=== PATIENT | male | born 1945 | race Two or more races ===

== ENCOUNTER 2018-06-05 12:04 | Inpatient (IN) | payer OTHER ==
[~2018-06-05] VITALS: Ht 172.7 cm; Wt 77.1 kg
[2018-06-05] MEDS ORDERED: ONDANSETRON HCL 4 MG/2 ML VIAL IV ONE (12:15)
[2018-06-05] MEDS ORDERED: NITROGLYCERIN 0.4 MG SL TAB SL ONE (12:15)
[2018-06-05] MEDS ORDERED: ASPirin 81 mg TAB PO ONE (12:15)
[2018-06-05] MEDS ORDERED: MORPHINE SULFATE 4 MG/ML SYR/VIAL IV ONE (12:15)
[2018-06-05 12:41] LABS: Basophils # (auto) 0.1 uL; Eosinophils # (auto) 0.2 uL; Hematocrit 33.1 % (41.0-53.0); Hemoglobin 11.4 g/dL (13.5-17.5); Lymphocytes # (auto) 1.6 uL; Lymphocytes % (auto) 31.2 % (10.0-50.0); Mean Corpuscular Hemoglobin 31.7 pg (28.0-32.0); Mean Corpuscular Hgb Conc. 34.3 g/dL (32.0-36.0); Mean Corpuscular Volume 92.4 fL (80.0-100.0); Monocytes # (auto) 0.3 uL; Monocytes % (auto) 6.6 % (0.0-12.0); Neutrophils # (auto) 2.9 uL; Neutrophils % (auto) 58.2 % (37.0-80.0); Platelet Count (auto) 169 10^3/uL (140-450); Red Blood Cells 3.58 10^6/uL (4.5-5.90); Red Cell Distribution Width 15.2 % (11.8-14.3)
[2018-06-05 12:56] LABS: Albumin 2.7 g/dL (3.4-5.0); BUN/Creatinine Ratio 12.4; Calcium 8.6 mg/dL (8.5-10.1); Potassium 3.6 mmol/L (3.5-5.1)
[2018-06-05 12:59] LABS: INR 0.9 (0.9-1.15); Partial Thromboplastin Time 26.6 sec (23.78-33.04); Prothrombin Time 9.7 sec (9.27-12.13)
[2018-06-05 13:01] LABS: Bilirubin, Total 0.4 mg/dL (0.2-1.0); Total Protein 7.1 g/dL (6.4-8.2)
[2018-06-05] MEDS ORDERED: HEPARIN SODIUM (PORCINE) 5000 UNITS/ML 1ML VIAL IV ONE (13:15)
[2018-06-05] MEDS: SODIUM CHLORIDE 0.9% 1,000 ML IV SCH (13:29)
[2018-06-05] MEDS ORDERED: NITROGLYCERIN 0.4 MG SL TAB SL PRN (13:30)
[2018-06-05] MEDS ORDERED: MORPHINE SULFATE 4 MG/ML SYR/VIAL IV PRN ×2 (13:30)
[2018-06-05] MEDS ORDERED: DEXTROSE (50%) 50ML SYRG IV PRN (13:30)
[2018-06-05] MEDS ORDERED: ACETAMINOPHEN 500 MG TAB PO PRN (13:30)
[2018-06-05] MEDS ORDERED: TEMAZEPAM 15 MG CAP PO PRN (13:30)
[2018-06-05] MEDS ORDERED: ONDANSETRON HCL 4 MG/2 ML VIAL IV PRN (13:30)
[2018-06-05] MEDS ORDERED: HYDROcodone-ACET 5/325MG TAB PO PRN (13:30)
[2018-06-05] MEDS ORDERED: SODIUM BICARBONATE 50ML VIAL 50 ML in D5W 5% 1,000 ML IV ONE (13:45)
[2018-06-05] MEDS ORDERED: ACETYLCYSTEINE ORAL for CIN 20%(200MG/ML) 4ML PO ONE (13:45)
[2018-06-05] MEDS ORDERED: SODIUM BICARBONATE 8.4% INJ 50ML SYRINGE ONE (13:50)
[2018-06-05] MEDS ORDERED: LIDOCAINE 2%HCL (LOCAL ANESTH.) INJ 10ml MDV ONE (13:50)
[2018-06-05] MEDS ORDERED: SODIUM CHL 0.9% 50 ML ONE (13:50)
[2018-06-05] MEDS ORDERED: MIDAZOLAM HCL 1MG/1ML-2 ML VIAL ONE (13:50)
[2018-06-05] MEDS ORDERED: ANGIOMAX 250 MG VIAL IV ONE (13:50)
[2018-06-05] MEDS ORDERED: fentaNYL CITRATE 100 MCG/2 ML VL ONE (13:50)
[2018-06-05] MEDS ORDERED: IODIXANOL 320MG/ML 100ML BTL IV ONE (13:51)
[2018-06-05 14:11] LABS: Urine Bacteria NONE SEEN /hpf (None Seen); Urine Blood TRACE /uL (Negative); Urine Specific Gravity 1.008 (1.001-1.035); Urine WBC 1 /hpf (0 - 3)
[2018-06-05 14:37] LABS: Alcohol, Urine < 3.0 mg/dL (0-5); Amphetamine Screen, Urine NEGATIVE (NEGATIVE); Barbiturate Scree,Urine NEGATIVE (NEGATIVE); Benzodiazephine Screen, Urine NEGATIVE (NEGATIVE); Cannabinoid Screen, Urine NEGATIVE (NEGATIVE); Cocaine Screen, Urine NEGATIVE (NEGATIVE); Phencyclidine Screen, Urine NEGATIVE (NEGATIVE)
[2018-06-05 14:47] LABS: Opiate Scree,Urine NEGATIVE (NEGATIVE)
[2018-06-05] MEDS ORDERED: HEPARIN SODIUM (PORCINE) 5000 UNITS/ML 1ML VIAL ONE (14:55)
[2018-06-05] MEDS ORDERED: PRASUGREL HCL 10 MG TAB ONE (15:21)
[2018-06-05 15:50] VITALS: BP 149/67
[2018-06-05] MEDS: InsuLIN REG 1unit/0.01ml Soln (100units/ml) SC SCH ×2 (17:00→21:37)
[2018-06-05 17:06] VITALS: BP 149/67
[2018-06-05] MEDS: ACCU-CHEK COMFORT CURVE STRIP VI SCH ×2 (18:05→21:31)
[2018-06-05 20:00] VITALS: BP 159/66
[2018-06-05] MEDS: SODIUM CHLOR 0.9% PF (SALINE LOCK) 10ML VIAL/SYR IV SCH (21:30)
[2018-06-05] MEDS: METOPROLOL TARTRATE 25 MG TAB PO SCH (21:30)
[2018-06-05] MEDS: ATORVASTATIN 20 MG TAB PO SCH (21:30)
[2018-06-05] MEDS ORDERED: ENOXAPARIN SOD 80 MG/0.8ML SYRINGE SC SCH (22:00)
[2018-06-06] VITALS: BP 156/80
[2018-06-06] MEDS: LORazepam 0.5 MG TAB PO PRN ×2 (02:01→22:02)
[2018-06-06] MEDS: SODIUM CHLORIDE 0.9% 1,000 ML IV SCH ×2 (02:52→16:15)
[2018-06-06 04:00] VITALS: BP 151/66
[2018-06-06] MEDS: SODIUM CHLOR 0.9% PF (SALINE LOCK) 10ML VIAL/SYR IV SCH ×3 (06:32→22:00)
[2018-06-06] MEDS: ACCU-CHEK COMFORT CURVE STRIP VI SCH ×4 (06:32→22:00)
[2018-06-06] MEDS: InsuLIN REG 1unit/0.01ml Soln (100units/ml) SC SCH ×4 (06:44→22:30)
[2018-06-06 08:00] VITALS: BP 153/69
[2018-06-06 09:41] LABS: Basophils # (auto) 0.1 uL; Basophils % (auto) 1.3 % (0.0-2.0); Eosinophils # (auto) 0.2 uL; Eosinophils % (auto) 4.9 % (0.0-7.0); Hematocrit 32.5 % (41.0-53.0); Hemoglobin 10.8 g/dL (13.5-17.5); Lymphocytes # (auto) 0.9 uL; Lymphocytes % (auto) 19.5 % (10.0-50.0); Mean Corpuscular Hemoglobin 30.7 pg (28.0-32.0); Mean Corpuscular Hgb Conc. 33.2 g/dL (32.0-36.0); Mean Corpuscular Volume 92.4 fL (80.0-100.0); Monocytes # (auto) 0.4 uL; Monocytes % (auto) 7.6 % (0.0-12.0); Neutrophils # (auto) 3.1 uL; Neutrophils % (auto) 66.7 % (37.0-80.0); Platelet Count (auto) 163 10^3/uL (140-450); Red Blood Cells 3.52 10^6/uL (4.5-5.90); Red Cell Distribution Width 15.1 % (11.8-14.3); White Blood Cell 4.6 10^3/uL (4.4-10.8)
[2018-06-06 09:47] LABS: Albumin 2.4 g/dL (3.4-5.0); Calcium 8.1 mg/dL (8.5-10.1); Potassium 3.8 mmol/L (3.5-5.1)
[2018-06-06] MEDS: NITROGLYCERIN 0.2MG/HR TOPICAL PATCH TD SCH (09:50)
[2018-06-06] MEDS: PANTOPRAZOLE 40 MG TAB PO SCH (09:50)
[2018-06-06 09:51] LABS: BUN/Creatinine Ratio 11.4
[2018-06-06] MEDS: METOPROLOL TARTRATE 25 MG TAB PO SCH ×2 (09:51→22:00)
[2018-06-06] MEDS: CLOPIDOGREL BISULFATE 75 MG TAB PO SCH (09:51)
[2018-06-06] MEDS: DABIGATRAN 75 MG CAP PO SCH ×2 (09:51→22:01)
[2018-06-06 09:52] LABS: Bilirubin, Total 0.4 mg/dL (0.2-1.0); Total Protein 6.5 g/dL (6.4-8.2)
[2018-06-06] MEDS ORDERED: ENALAPRIL MALEATE 2.5 MG TAB PO SCH (10:00)
[2018-06-06] MEDS ORDERED: ASPirin 81 mg TAB PO SCH (10:00)
[2018-06-06 11:50] VITALS: BP 144/69
[2018-06-06 16:00] VITALS: BP 158/70
[2018-06-06 19:46] VITALS: BP 176/80
[2018-06-06] MEDS: ATORVASTATIN 20 MG TAB PO SCH (22:01)
[2018-06-06] MEDS: ENALAPRIL MALEATE 2.5 MG TAB PO SCH (22:01)
[2018-06-07] VITALS: BP 163/72
[2018-06-07 04:00] VITALS: BP 158/77
[2018-06-07] MEDS: SODIUM CHLORIDE 0.9% 1,000 ML IV SCH (05:29)
[2018-06-07] MEDS: SODIUM CHLOR 0.9% PF (SALINE LOCK) 10ML VIAL/SYR IV SCH (06:47)
[2018-06-07] MEDS: InsuLIN REG 1unit/0.01ml Soln (100units/ml) SC SCH (06:48)
[2018-06-07] MEDS: ACCU-CHEK COMFORT CURVE STRIP VI SCH (06:48)
[2018-06-07 08:00] VITALS: BP 176/69
[2018-06-07] MEDS ORDERED: METOPROLOL TARTRATE 50 MG TAB PO ONE (08:00)
[2018-06-07 09:07] LABS: Basophils # (auto) 0 uL; Basophils % (auto) 1.1 % (0.0-2.0); Eosinophils # (auto) 0.2 uL; Eosinophils % (auto) 5.6 % (0.0-7.0); Hematocrit 34.8 % (41.0-53.0); Hemoglobin 11.6 g/dL (13.5-17.5); Mean Corpuscular Hemoglobin 30.9 pg (28.0-32.0); Mean Corpuscular Hgb Conc. 33.4 g/dL (32.0-36.0); Mean Corpuscular Volume 92.6 fL (80.0-100.0); Monocytes # (auto) 0.3 uL; Monocytes % (auto) 6.6 % (0.0-12.0); Neutrophils # (auto) 2.7 uL; Neutrophils % (auto) 62.7 % (37.0-80.0); Platelet Count (auto) 165 10^3/uL (140-450); Red Blood Cells 3.75 10^6/uL (4.5-5.90); Red Cell Distribution Width 14.9 % (11.8-14.3); White Blood Cell 4.3 10^3/uL (4.4-10.8)
[2018-06-07 09:27] LABS: Albumin 2.5 g/dL (3.4-5.0); BUN/Creatinine Ratio 13.5; Calcium 8.3 mg/dL (8.5-10.1)
[2018-06-07 09:28] LABS: Bilirubin, Total 0.3 mg/dL (0.2-1.0); Total Protein 6.5 g/dL (6.4-8.2)
[2018-06-07] MEDS: NITROGLYCERIN 0.2MG/HR TOPICAL PATCH TD SCH (10:00)
[2018-06-07] MEDS: DABIGATRAN 75 MG CAP PO SCH (10:13)
[2018-06-07] MEDS: CLOPIDOGREL BISULFATE 75 MG TAB PO SCH (10:13)
[2018-06-07] MEDS: ENALAPRIL MALEATE 2.5 MG TAB PO SCH (10:14)
[2018-06-07] MEDS: PANTOPRAZOLE 40 MG TAB PO SCH (10:15)
[2018-06-07 11:00] VITALS: BP 161/75
[2018-06-07 12:10] VITALS: BP 139/64
[2018-06-07 12:11] VITALS: BP 139/64
== END 2018-06-07 12:30 | disposition home or self-care (01) | DRG 250 ==
LOC: ER 12:04 → EDUNIT# 12:04 → TELE 12:05 → ICU CENTRL 15:58 → DOU IN ICU 16:31
PROVIDERS: ADMIT Internal Medicine; ATTEND Family Medicine
PROC: 02703ZZ Dilation of Coronary Artery, One Artery, Percutaneous Approach (ICD-10-PCS; principal; 2018-06-05)
PROC: B2111ZZ Fluoroscopy of Multiple Coronary Arteries using Low Osmolar Contrast (ICD-10-PCS; 2018-06-05)
PROC: 4A023N7 Measurement of Cardiac Sampling and Pressure, Left Heart, Percutaneous Approach (ICD-10-PCS; 2018-06-05)
PROC: B240ZZ3 Ultrasonography of Single Coronary Artery, Intravascular (ICD-10-PCS; 2018-06-05)
DX: I21.4 Non-ST elevation (NSTEMI) myocardial infarction (principal); E43 Unspecified severe protein-calorie malnutrition; I50.33 Acute on chronic diastolic (congestive) heart failure; I13.0 Hypertensive heart and chronic kidney disease with heart failure and stage 1 through stage 4 chronic kidney disease, or unspecified chronic kidney disease; E78.00 Pure hypercholesterolemia, unspecified; E11.65 Type 2 diabetes mellitus with hyperglycemia; Z85.01 Personal history of malignant neoplasm of esophagus; Z92.3 Personal history of irradiation; Z92.21 Personal history of antineoplastic chemotherapy; N18.9 Chronic kidney disease, unspecified; I25.2 Old myocardial infarction; Z95.5 Presence of coronary angioplasty implant and graft; I45.10 Unspecified right bundle-branch block; I25.10 Atherosclerotic heart disease of native coronary artery without angina pectoris; E78.5 Hyperlipidemia, unspecified; E11.22 Type 2 diabetes mellitus with diabetic chronic kidney disease; Z68.25 Body mass index [BMI] 25.0-25.9, adult; Z88.6 Allergy status to analgesic agent; Z88.2 Allergy status to sulfonamides; Z79.899 Other long term (current) drug therapy
CPT/HCPCS: 36415; 71045; 80053; 80061; 80307; 81001; 82550; 82962; 83036; 83880; 84484; 85025; 85610; 85652; 85730; 86141; 87081; 92920; 92921; 92978; 93005; 93306; 93458; 99152; A6257; C1887; J1815; J2001; J2250; J2405; Q9967

== ENCOUNTER 2020-06-23 02:18 | Inpatient (IN) | payer OTHER ==
[~2020-06-23] VITALS: Ht 177.8 cm; Wt 80.6 kg
[2020-06-23 03:15] LABS: Basophils # (auto) 0.1 10 ^3/uL (0-0.2); Basophils % (auto) 1.2 % (0.0-2.0); Eosinophils # (auto) 0.2 10 ^3/uL (0-0.8); Eosinophils % (auto) 2.9 % (0.0-7.0); Hematocrit 26.2 % (41.0-53.0); Hemoglobin 8.7 g/dL (13.5-17.5); Lymphocytes # (auto) 1.2 10 ^3/uL (0.4-5.4); Lymphocytes % (auto) 18.4 % (10.0-50.0); Mean Corpuscular Hemoglobin 28.7 pg (28.0-32.0); Mean Corpuscular Hgb Conc. 33.1 g/dL (32.0-36.0); Mean Corpuscular Volume 86.8 fL (80.0-100.0); Monocytes # (auto) 0.5 10 ^3/uL (0-1.3); Monocytes % (auto) 7.3 % (0.0-12.0); Neutrophils # (auto) 4.6 10 ^3/uL (1.6-8.6); Neutrophils % (auto) 70.2 % (37.0-80.0); Nucleated Red Blood Cells % 0.1 %; Platelet Count (auto) 262 10^3/uL (140-450); Red Blood Cells 3.02 10^6/uL (4.5-5.90); Red Cell Distribution Width 15.7 % (11.8-14.3); White Blood Cell 6.6 10^3/uL (4.4-10.8)
[2020-06-23 03:30] LABS: INR 2.76 (0.9-1.15); Partial Thromboplastin Time 38.1 sec (23.0-31.2)
[2020-06-23 03:34] LABS: Albumin 2.8 g/dL (3.4-5.0); BUN/Creatinine Ratio 13.8; Calcium 8.1 mg/dL (8.5-10.1); Potassium 4.6 mmol/L (3.5-5.1)
[2020-06-23 03:40] LABS: Bilirubin, Total 0.2 mg/dL (0.2-1.0); Total Protein 6.6 g/dL (6.4-8.2)
[2020-06-23] MEDS ORDERED: ONDANSETRON HCL 4 MG/2 ML VIAL IV ONE (03:45)
[2020-06-23] MEDS ORDERED: MORPHINE SULFATE 4 MG/ML SYR/VIAL IV ONE (03:45)
[2020-06-23] MEDS ORDERED: FUROSEMIDE 20 MG/2 ML VIAL IV ONE (04:15)
[2020-06-23] MEDS ORDERED: DEXTROSE (50%) 50ML SYRG IV PRN (07:00)
[2020-06-23] MEDS: ACCU-CHEK COMFORT CURVE STRIP VI SCH ×4 (08:30→21:40)
[2020-06-23] MEDS: InsuLIN REG 1unit/0.01ml Soln (100units/ml) SC SCH ×4 (09:02→21:47)
[2020-06-23] MEDS: ASPirin 81 mg TAB PO SCH (09:13)
[2020-06-23] MEDS: CLOPIDOGREL BISULFATE 75 MG TAB PO SCH (09:15)
[2020-06-23] MEDS: hydrALAZINE HCL 25 MG TAB PO SCH ×2 (09:15→21:39)
[2020-06-23] MEDS: ISOSORBIDE MONONITRATE ER 60 MG TAB PO SCH (09:15)
[2020-06-23] MEDS: METOPROLOL TARTRATE 25 MG TAB PO SCH ×2 (09:16→21:39)
[2020-06-23] MEDS: PANTOPRAZOLE 40 MG TAB PO SCH (09:16)
[2020-06-23] MEDS ORDERED: AMLO5TAB15 PO (09:56)
[2020-06-23] MEDS ORDERED: SENN1TAB14 PO (09:56)
[2020-06-23] MEDS ORDERED: HYDR50TA15 PO (09:56)
[2020-06-23] MEDS ORDERED: LISI-646 PO (09:56)
[2020-06-23] MEDS ORDERED: METO25TA5 PO (09:56)
[2020-06-23] MEDS ORDERED: ZOLP5TAB5 PO (09:56)
[2020-06-23] MEDS ORDERED: TRAZ-184 PO (09:56)
[2020-06-23] MEDS ORDERED: ISOS60TA24 PO (09:56)
[2020-06-23] MEDS ORDERED: WARF5TAB71 PO (09:56)
[2020-06-23] MEDS ORDERED: CLOP75TA41 PO (09:56)
[2020-06-23] MEDS ORDERED: LISINOPRIL 10 MG TAB PO SCH (10:00)
[2020-06-23] MEDS: ONDANSETRON HCL 4 MG/2 ML VIAL IV PRN ×2 (10:15→15:24)
[2020-06-23] MEDS ORDERED: ATOR40TA52 PO (10:46)
[2020-06-23] MEDS: ENOXAPARIN SOD 30 MG/0.3 ML SYRINGE SC SCH (11:45)
[2020-06-23] MEDS ORDERED: OPTISON 3ml Vial for INJ IV ONE ×2 (11:53→12:15)
[2020-06-23 13:04] VITALS: BP 140/60
--- NOTE | 2020-06-23 13:15 | NUR ---
Telemetry admit from ER MARIA LUZ OSWALD admitted to Telemetry unit after SBAR received. Patient oriented to Nevin Quevedo, primary RN, unit, room, bed, and unit policies regarding patient care and visiting hours.Patient now on continuous telemetry monitoring, tele box #23 and telemetry reading on arrival to unit is sinus rhythm @ 81 bpm. IV to left hand, 20 gauge, patent and saline locked. Patient placed on bedside oxygen, weighed by bedscale and encouraged to call if they need something. All questions and concerns addressed, patient verbalized understanding.
--- NOTE | 2020-06-23 13:20 | NUR ---
ROUNDS Dr Fan Mathur at bedside for rounds, new orders received and followed through. Patient updated on plan of care, verbalized understanding.
[2020-06-23 16:33] VITALS: BP 129/90
[2020-06-23] MEDS ORDERED: LORA1TAB23 PO (16:50)
[2020-06-23] MEDS: LORazepam 0.5 MG TAB PO PRN (17:56)
[2020-06-23] MEDS: SODIUM CHLORIDE 0.9% 1,000 ML IV SCH (17:56)
--- NOTE | 2020-06-23 19:09 | NUR ---
Care endorsed to JAMEE Pete, night nurse.
[2020-06-23 21:20] LABS: Urine Bacteria FEW /hpf (None Seen); Urine Blood TRACE /uL (Negative); Urine Hyaline Cast FEW /lpf (0 - 2); Urine Specific Gravity 1.016 (1.001-1.035); Urine WBC 2 /hpf (0 - 3)
[2020-06-23] MEDS: SODIUM BICARBONATE 650 MG TAB PO SCH (21:39)
[2020-06-23] MEDS: ATORVASTATIN 20 MG TAB PO SCH (21:39)
[2020-06-23 21:43] LABS: Protein, Urine 998.6 mg/dL (0.0-11.9)
[2020-06-23 22:00] VITALS: BP 164/70
--- NOTE | 2020-06-24 04:49 | NUR ---
HOSPITALIST PAGED PATIENT HAD 22 BEAT RUN OF VTACH. BP IS 183/63 HR 64. PATIENT DENIES CHEST PAIN, ASYMPTOMATIC.
[2020-06-24 05:00] VITALS: BP 184/83
--- NOTE | 2020-06-24 05:00 | NUR ---
HOSPITALIST RETURNS CALL SPOKE TO DANIELLA RELATIONSHIP BANKER NOTIFIED HIM OF PATIENT'S 22 BEAT RUN OF VTACH.CURRENT VITALS: BP 183/63 HR 64. PATIENT DENIES CHEST PAIN, ASYMPTOMATIC. NEW ORDERS RECEIVED, READ BACK AND VERIFIED.
[2020-06-24] MEDS: hydrALAZINE HCL 20 MG/ML VL IV PRN ×2 (05:20→16:19)
[2020-06-24] MEDS: SODIUM BICARBONATE 650 MG TAB PO SCH ×3 (05:20→21:11)
[2020-06-24 06:19] LABS: Basophils # (auto) 0.1 10 ^3/uL (0-0.2); Basophils % (auto) 1.4 % (0.0-2.0); Eosinophils # (auto) 0.2 10 ^3/uL (0-0.8); Eosinophils % (auto) 4.3 % (0.0-7.0); Hematocrit 25.8 % (41.0-53.0); Hemoglobin 8.5 g/dL (13.5-17.5); Lymphocytes # (auto) 1.1 10 ^3/uL (0.4-5.4); Lymphocytes % (auto) 21.2 % (10.0-50.0); Mean Corpuscular Hgb Conc. 33.1 g/dL (32.0-36.0); Mean Corpuscular Volume 87.6 fL (80.0-100.0); Monocytes # (auto) 0.4 10 ^3/uL (0-1.3); Monocytes % (auto) 7.8 % (0.0-12.0); Neutrophils # (auto) 3.3 10 ^3/uL (1.6-8.6); Neutrophils % (auto) 65.3 % (37.0-80.0); Platelet Count (auto) 244 10^3/uL (140-450); Red Blood Cells 2.94 10^6/uL (4.5-5.90); Red Cell Distribution Width 15.6 % (11.8-14.3)
[2020-06-24] MEDS: InsuLIN REG 1unit/0.01ml Soln (100units/ml) SC SCH ×4 (06:22→21:22)
[2020-06-24] MEDS: ACCU-CHEK COMFORT CURVE STRIP VI SCH ×4 (06:22→21:12)
[2020-06-24] MEDS: hydrALAZINE HCL 25 MG TAB PO SCH ×3 (06:22→21:11)
[2020-06-24 06:39] LABS: BUN/Creatinine Ratio 14.7; Calcium 8.8 mg/dL (8.5-10.1); Potassium 5.1 mmol/L (3.5-5.1)
[2020-06-24 06:40] LABS: INR 2.56 (0.9-1.15); Partial Thromboplastin Time 36.7 sec (23.0-31.2)
--- NOTE | 2020-06-24 07:30 | NUR ---
Opening Shift Note Assuming care of patient at this time. Patient is awake and alert. Patient denies pain. Patient shows no signs or symptoms of distress or shortness of breath. Bed is locked and lowered with side rails up x2. Instructed patient on the plan of care for today and to call for assistance as needed. Call light within reach. Will continue to round hourly and as needed.
--- NOTE | 2020-06-24 08:30 | NUR ---
DARREN Roberto, at bedside Mayra Roberto NP, at bedside at this time discussing plan of care with patient. Pardeep, reeducating patient on details of procedure. Patient is aware of procedure including both risks and benefits. Patient has decided to proceed with procedure. Will have patient sign consents at this time.
--- NOTE | 2020-06-24 08:44 | NUR ---
Call to Telephone Coin Box Collector Call to wastewater analyst lab analyst. Patient has signed consents regarding upcoming procedure. Telephone Coin Box Collector to contact this RN when they are ready for patient.
[2020-06-24 09:00] VITALS: BP 154/66
[2020-06-24] MEDS: ASPirin 81 mg TAB PO SCH (09:35)
[2020-06-24] MEDS: CLOPIDOGREL BISULFATE 75 MG TAB PO SCH (09:35)
[2020-06-24] MEDS: METOPROLOL TARTRATE 25 MG TAB PO SCH ×2 (09:36→21:11)
[2020-06-24] MEDS: ISOSORBIDE MONONITRATE ER 60 MG TAB PO SCH (09:37)
[2020-06-24] MEDS: PANTOPRAZOLE 40 MG TAB PO SCH (09:38)
[2020-06-24] MEDS: ENOXAPARIN SOD 30 MG/0.3 ML SYRINGE SC SCH (09:38)
--- NOTE | 2020-06-24 09:45 | NUR ---
at bedside Dr. Mathur at bedside discussing plan of care with patient and this RN. All questions and concerns addressed with patient.
[2020-06-24] MEDS ORDERED: ENOXAPARIN SOD 100 MG/1 ML SYRINGE SC SCH (10:00)
[2020-06-24] MEDS ORDERED: IODIXANOL 320MG/ML 100ML BTL IV ONE ×2 (12:50→14:14)
[2020-06-24] MEDS ORDERED: LIDOCAINE 2%HCL (LOCAL ANESTH.) INJ 20ML MDV ONE (12:50)
[2020-06-24] MEDS ORDERED: VERAPAMIL 2.5MG/ML INJ 2ML VIAL IV ONE (13:15)
[2020-06-24] MEDS ORDERED: diphenhdrAMINE HCL 50 MG/1 ML VL ONE (13:15)
[2020-06-24] MEDS ORDERED: ANGIOMAX 250 MG VIAL IV ONE (13:15)
[2020-06-24] MEDS ORDERED: methylPREDNISolone SOD SUCC 125 MG/2 ML VL ONE (13:15)
[2020-06-24] MEDS ORDERED: HEPARIN SODIUM (PORCINE) 5000 UNITS/ML 1ML VIAL ONE (13:15)
[2020-06-24] MEDS ORDERED: fentaNYL CITRATE 100 MCG/2 ML VL ONE (13:16)
[2020-06-24] MEDS ORDERED: FAMOTIDINE (10MG/ML) 2ML VL IV ONE (13:16)
[2020-06-24] MEDS ORDERED: MIDAZOLAM HCL 1MG/1ML-2 ML VIAL ONE ×2 (13:16→13:51)
[2020-06-24] MEDS ORDERED: SODIUM CHL 0.9% 50 ML ONE (13:16)
[2020-06-24] MEDS ORDERED: hydrALAZINE HCL 20 MG/ML VL ONE (14:11)
[2020-06-24] MEDS ORDERED: ASPirin 81 mg TAB ONE (14:16)
--- NOTE | 2020-06-24 16:18 | NUR ---
Call to Daughter Return call to daughter at this time. Daughter made aware that woodworking shop laborer has called report in to this RN and that patient will be returning to the floor soon.
[2020-06-24 16:35] VITALS: BP 146/67
[2020-06-24] MEDS: SODIUM CHLORIDE 0.9% 1,000 ML IV SCH (19:30)
[2020-06-24] MEDS ORDERED: SODIUM CHLORIDE 0.9% 1,000 ML IV ONE (20:00)
--- NOTE | 2020-06-24 20:00 | NUR ---
Opening Shift Note Assumed care of patient, awake and alert. No S/S of distress/SOB or pain. Instructed on POC and to call for assist PRN, will continue to monitor for changes Q1hr and PRN.Dressing in the right groin dry and intact, with old blood stained.
[2020-06-24] MEDS: ATORVASTATIN 20 MG TAB PO SCH (21:10)
[2020-06-24] MEDS: LORazepam 0.5 MG TAB PO PRN (21:22)
[2020-06-24 21:32] VITALS: BP 156/77
[2020-06-25] MEDS: hydrALAZINE HCL 20 MG/ML VL IV PRN (04:43)
[2020-06-25] MEDS: SODIUM BICARBONATE 650 MG TAB PO SCH ×3 (05:33→21:10)
[2020-06-25] MEDS: hydrALAZINE HCL 25 MG TAB PO SCH ×3 (05:34→21:09)
[2020-06-25 05:57] VITALS: BP 166/60
[2020-06-25] MEDS: InsuLIN REG 1unit/0.01ml Soln (100units/ml) SC SCH ×4 (06:25→21:38)
[2020-06-25] MEDS: ACCU-CHEK COMFORT CURVE STRIP VI SCH ×4 (06:25→21:11)
[2020-06-25] MEDS: NITROGLYCERIN 0.4 MG SL TAB SL PRN (06:55)
--- NOTE | 2020-06-25 06:55 | NUR ---
Complained of chest pain 9/10 level, blood pressure is 160/86 manual,pulse is 65,machine is 191/84, medicated with nitroglycerine .4mg.tab.,sublingual, EKG done.
--- NOTE | 2020-06-25 07:36 | NUR ---
REPORT GIVEN TO Vamsi LEMON, PATIENT IS RESTING , CHEST PA[place] 10/05 [place] [id number].
[2020-06-25] MEDS ORDERED: cloNIDine HCL 0.1 MG TAB PO PRN (08:15)
--- NOTE | 2020-06-25 08:42 | NUR ---
Rounded on patient with who said that patient kidney function are stable for now and he would like to keep patient here one more day. That he did not want to transfer patient to [facility] since his kidney functions are better. He ordered CMP for patient and said to call with the results.I also let him know that patient was having chest pain last night he said that it is expected after a heart cath. I also let him know that patient blood pressure is high he ordered clonidine 0.2mg q6 PO PRN SBP >160.
[2020-06-25 08:56] LABS: Albumin 2.8 g/dL (3.4-5.0); Calcium 8.4 mg/dL (8.5-10.1); Potassium 5.5 mmol/L (3.5-5.1)
[2020-06-25 08:58] LABS: BUN/Creatinine Ratio 17.1; Bilirubin, Total 0.2 mg/dL (0.2-1.0); Total Protein 6.5 g/dL (6.4-8.2)
[2020-06-25 09:00] VITALS: BP 170/66
[2020-06-25] MEDS ORDERED: InsuLIN REG 1unit/0.01ml Soln (100units/ml) IV ONE (09:15)
[2020-06-25] MEDS ORDERED: CALCIUM GLUC 4.65meq/50ml D5AE 50 ML IV ONE (09:15)
[2020-06-25] MEDS ORDERED: SODIUM ZIRCONIUM CYCL 10 GM PAK PO ONE (09:15)
[2020-06-25] MEDS ORDERED: SODIUM BICARBONATE 8.4% INJ 50ML SYRINGE IV ONE (09:15)
[2020-06-25] MEDS ORDERED: FUROSEMIDE 20 MG/2 ML VIAL IV ONE ×2 (09:15→13:30)
[2020-06-25] MEDS ORDERED: DEXTROSE (50%) 50ML SYRG IV ONE (09:15)
[2020-06-25] MEDS: MORPHINE SULF INJ 2 MG/ML SYRINGE 1ML IV PRN (09:41)
[2020-06-25] MEDS: ASPirin 81 mg TAB PO SCH (10:02)
[2020-06-25] MEDS: CLOPIDOGREL BISULFATE 75 MG TAB PO SCH (10:02)
[2020-06-25] MEDS: METOPROLOL TARTRATE 25 MG TAB PO SCH ×2 (10:02→21:10)
[2020-06-25] MEDS: ENOXAPARIN SOD 30 MG/0.3 ML SYRINGE SC SCH (10:03)
[2020-06-25] MEDS: ISOSORBIDE MONONITRATE ER 60 MG TAB PO SCH (10:03)
[2020-06-25] MEDS: PANTOPRAZOLE 40 MG TAB PO SCH (10:30)
[2020-06-25 13:00] VITALS: BP 156/53
--- NOTE | 2020-06-25 13:28 | NUR ---
Spoke to told her the patient labs and also informed her that saw the patient and because of patient's potassium of 5.5 he ordered dextrose 50% IV once, sodium bicarbonate 8.4% IV once, lokelma 10gm PO once , lasix 20mg once , insulin 10 units once, calcium gluconate 4.65meq/50ml IV once. aware. also gave me the order for another dose of lasix 20gm IV once, and to put patient on Lokelma for 48 hours TID per protocol for Hyperkalemia.
[2020-06-25] MEDS: SODIUM ZIRCONIUM CYCL 10 GM PAK PO SCH ×2 (15:05→22:44)
[2020-06-25 16:40] VITALS: BP 153/74
[2020-06-25] MEDS: SODIUM BICARBONATE 50ML VIAL 75 ML in SOD CHL 0.45% 1,000 ML IV SCH (17:49)
--- NOTE | 2020-06-25 18:07 | NUR ---
Paged that is abalone fisherman to let him know that patient had 1 episode of chest pain but after I gave him the ordered morphine , patient was fine and never had another chest pain episode. Although I spoke to that said it is expected after a heart cath, I also wanted to let know. The patient also had 6 beats of afib during the day, it is not a new rhythm for patient as on the 06/23 patient had a ekg done which resulted in afib. did not call back yet.
--- NOTE | 2020-06-25 19:54 | NUR ---
Opening Shift Note Assumed care of patient, awake and alert. No S/S of distress/SOB or pain. Instructed on POC and to call for assist PRN, will continue to monitor for changes Q1hr and PRN.Requested Ativan tab. at bedtime.
[2020-06-25] MEDS: ATORVASTATIN 20 MG TAB PO SCH (21:10)
--- NOTE | 2020-06-25 21:30 | NUR ---
Called/paged Romain called re:stool softener . Waiting for call back. Continue care.
--- NOTE | 2020-06-25 21:35 | NUR ---
returned call Patricia returned call, updated on patient status and reason for call, orders received of colace 100mg.cap.B.I.D Continue care.
[2020-06-25] MEDS: DOCUSATE SOD 100 MG CAP PO SCH (21:37)
[2020-06-25 22:00] VITALS: BP 158/56
[2020-06-26] MEDS: LORazepam 0.5 MG TAB PO PRN ×2 (00:46→22:40)
--- NOTE | 2020-06-26 01:17 | NUR ---
returned call Coretta Campo. returned call, updated on patient status and reason for call that patient had 15 beats V-tach no complaint of chest pain. R.N. went to check patient asymptomatic, patient is sitting in the bed want to use the urinal, vital signs check with blood pressure of 182/68, pulse is 73, and .2mg.clonidine given as PRN, and 1mg. Ativan tab. to help him relax and sleep, and told N.p. that the patient had episode also of 12 beats V-Tach on the 06/23, and the left heart cath on the 06/24, no orders received. Continue care.
--- NOTE | 2020-06-26 01:17 | NUR ---
Called/paged Gregg Campo called re:patient had episode of 15 beats of V-Tach, asymptomatic . Waiting for call back. Continue care.
[2020-06-26 05:00] VITALS: BP 146/58
[2020-06-26] MEDS: hydrALAZINE HCL 25 MG TAB PO SCH ×3 (05:46→22:18)
[2020-06-26] MEDS: SODIUM BICARBONATE 650 MG TAB PO SCH ×3 (05:49→22:18)
[2020-06-26] MEDS: ACCU-CHEK COMFORT CURVE STRIP VI SCH ×4 (05:52→21:55)
[2020-06-26] MEDS: InsuLIN REG 1unit/0.01ml Soln (100units/ml) SC SCH ×4 (05:52→21:56)
[2020-06-26 06:30] LABS: Albumin 2.3 g/dL (3.4-5.0); BUN/Creatinine Ratio 17.5; Calcium 7.7 mg/dL (8.5-10.1); Potassium 4.7 mmol/L (3.5-5.1)
[2020-06-26 06:33] LABS: Bilirubin, Total 0.2 mg/dL (0.2-1.0); Total Protein 5.1 g/dL (6.4-8.2)
[2020-06-26] MEDS: SODIUM ZIRCONIUM CYCL 10 GM PAK PO SCH ×3 (06:50→22:18)
[2020-06-26] MEDS: SODIUM BICARBONATE 50ML VIAL 75 ML in SOD CHL 0.45% 1,000 ML IV SCH ×2 (06:57→20:33)
--- NOTE | 2020-06-26 07:19 | NUR ---
Report given to .duglas Banks, patient is resting no distress.
--- NOTE | 2020-06-26 07:30 | NUR ---
Opening Shift Note RECEIVED REPORT FROM NOC RN. Assumed care of patient, awake and alert. No S/S of distress/SOB or pain. BED IN LOWEST, LOCKED POSITION WITH SIDERAILS UP x2 AND CALL LIGHT WITHIN REACH. Instructed on POC and to call for assist PRN, will continue to monitor for changes Q1hr and PRN.
--- NOTE | 2020-06-26 08:35 | NUR ---
DR. Fan CHAPPELL AT BEDSIDE.
[2020-06-26 09:00] VITALS: BP 133/57
[2020-06-26] MEDS: ASPirin 81 mg TAB PO SCH (10:12)
[2020-06-26] MEDS: DOCUSATE SOD 100 MG CAP PO SCH ×2 (10:12→22:18)
[2020-06-26] MEDS: PANTOPRAZOLE 40 MG TAB PO SCH (10:13)
[2020-06-26] MEDS: ENOXAPARIN SOD 30 MG/0.3 ML SYRINGE SC SCH (10:13)
[2020-06-26] MEDS: METOPROLOL TARTRATE 25 MG TAB PO SCH ×2 (10:13→22:00)
[2020-06-26] MEDS: CLOPIDOGREL BISULFATE 75 MG TAB PO SCH (10:13)
[2020-06-26] MEDS: ISOSORBIDE MONONITRATE ER 60 MG TAB PO SCH (10:13)
--- NOTE | 2020-06-26 11:24 | NUR ---
Nutrition Assessment Notes Please refer to link for full assessment notes. Est Energy needs: 7327-3565 kcals (20-23 kcal/kgBW) Est Protein needs: 76-83 gms/day (1.0-1.1 gm/kgBW) Will continue to monitor and reassess prn. Addendum: 06/26/20 at [address] Amended: Links added.
[2020-06-26] MEDS ORDERED: ACETAMINOPHEN 325 MG TAB PO PRN (12:45)
[2020-06-26 13:00] VITALS: BP 136/57
--- NOTE | 2020-06-26 15:30 | NUR ---
Resumed patient care from Darren MANCUSO. Patient is comfortably resting, no s/s of distress/sob noted/stated. No c/o pain. Will continue to monitor PRN.
[2020-06-26 16:50] VITALS: BP 142/71
[2020-06-26 22:00] VITALS: BP 155/71
[2020-06-26] MEDS: ATORVASTATIN 20 MG TAB PO SCH (22:18)
[2020-06-27] VITALS (7 sets, daily range): BP systolic 144–198; BP diastolic 46–76
[2020-06-27] MEDS: MORPHINE SULF INJ 2 MG/ML SYRINGE 1ML IV PRN ×3 (00:20→04:35)
[2020-06-27] MEDS: NITROGLYCERIN 0.4 MG SL TAB SL PRN ×3 (00:20→00:28)
--- NOTE | 2020-06-27 03:20 | NUR ---
pt c/o chest pain for the second time, previously given morphine, and nitro which relieved the pain. Dr. Lemon notified, orders taken to get stat troponins, and ekg.
--- NOTE | 2020-06-27 03:40 | NUR ---
ekg done, lab sending tech to draw troponins. Dr. Park notified.
[2020-06-27 04:39] LABS: Potassium 4.4 mmol/L (3.5-5.1)
[2020-06-27 04:49] LABS: Albumin 2.4 g/dL (3.4-5.0); BUN/Creatinine Ratio 18.8; Bilirubin, Total 0.3 mg/dL (0.2-1.0); Calcium 7.2 mg/dL (8.5-10.1); Total Protein 5.1 g/dL (6.4-8.2)
--- NOTE | 2020-06-27 04:58 | NUR ---
critical value taken for pt. BUN 81, call out to Dr. Lemon. Addendum: 06/27/20 at 0502 by RYAN CARPENTER RN RN also for elevated troponin levels of .377
--- NOTE | 2020-06-27 05:05 | NUR ---
covid swab collected and carried to lab
--- NOTE | 2020-06-27 05:43 | NUR ---
Dr. Lemon pages again to report critical value BUN of 81, and elevated troponins of .377. pt is scheduled fo 2 more troponin levels
--- NOTE | 2020-06-27 05:47 | NUR ---
per aide pt was having pain 10/10 but when assessed pt denied pain, morphine dose wasted.
[2020-06-27] MEDS: hydrALAZINE HCL 25 MG TAB PO SCH ×2 (06:00→13:42)
[2020-06-27] MEDS: SODIUM BICARBONATE 650 MG TAB PO SCH ×2 (06:00→13:42)
[2020-06-27] MEDS: SODIUM ZIRCONIUM CYCL 10 GM PAK PO SCH (06:00)
--- NOTE | 2020-06-27 06:16 | NUR ---
Dr. Lemon updated on Bun of 81, troponin of .377, and current pt status, aware that EKG is the same as last several ones. No new orders at this time.
[2020-06-27] MEDS: InsuLIN REG 1unit/0.01ml Soln (100units/ml) SC SCH ×3 (06:33→17:47)
[2020-06-27] MEDS: ACCU-CHEK COMFORT CURVE STRIP VI SCH ×3 (06:33→17:47)
--- NOTE | 2020-06-27 08:15 | NUR ---
Dr Mathur bedside with patient discussing plan of care
[2020-06-27] MEDS: SODIUM BICARBONATE 50ML VIAL 75 ML in SOD CHL 0.45% 1,000 ML IV SCH (09:00)
--- NOTE | 2020-06-27 10:10 | NUR ---
1000 06/27/20 - Faxed to [facility] at [phone] face sheet, Order to transfer to [facility] facility to telemetry bed by [facility]. Reason for transfer: Worsening kidney function after left heart cath, chronic kidney disease stage IV, non St elevation DE status post stenting, H/P, labs, meds, transfer summary. Spoke with [facility] lead case manager Luma who stated she would be working on a telemetry bed at [facility] in [place] for patient. Transfer pending review and bed availability.
[2020-06-27] MEDS ORDERED: MORPHINE SULF INJ 2 MG/ML SYRINGE 1ML IV PRN (10:30)
[2020-06-27] MEDS: ISOSORBIDE MONONITRATE ER 60 MG TAB PO SCH (10:35)
[2020-06-27] MEDS: ASPirin 81 mg TAB PO SCH (10:35)
[2020-06-27] MEDS: ENOXAPARIN SOD 30 MG/0.3 ML SYRINGE SC SCH (10:36)
[2020-06-27] MEDS: PANTOPRAZOLE 40 MG TAB PO SCH (10:36)
[2020-06-27] MEDS: CLOPIDOGREL BISULFATE 75 MG TAB PO SCH (10:36)
[2020-06-27] MEDS: METOPROLOL TARTRATE 25 MG TAB PO SCH (10:36)
[2020-06-27] MEDS: DOCUSATE SOD 100 MG CAP PO SCH (10:52)
--- NOTE | 2020-06-27 11:42 | NUR ---
assessment Patient is a 74 year old male who is alert and oriented. Patients cognitive abilities are intact. Prior to admission patient lived home alone and functioned independently. Patient informed me he is able to care for his own ADLs. Per patient he will return home to his prior living arrangements post discharge and family will transport him home. Patient informed me he has home oxygen and a cane for home use. Patient informed me his PCP is Dr Oro at [facility]. Patient informed me he was having chest pain and shortness of breath and called 911. Patient informed me he feels safe returning home on discharge. Alyssa has no post discharge needs at this time. I informed patient he has a right to speak to a social insurance analyst regarding all care. I informed patient he has a right to participate in any and all discharge planning. Patient has a POA and advanced directive. Patient verbalized understanding and agreed to discharge plan. Addendum: 06/27/20 at 1146 by Li SELF Amended: Links added.
--- NOTE | 2020-06-27 11:42 | NUR ---
Informed Geneva Roberto of patients run of afib this morning. Geneva also aware of patients continued chest pain and troponins.
--- NOTE | 2020-06-27 11:47 | NUR ---
Dr Desai on unit. Orders received and carried out
[2020-06-27] MEDS: ONDANSETRON HCL 4 MG/2 ML VIAL IV PRN ×2 (12:04→16:09)
--- NOTE | 2020-06-27 16:17 | NUR ---
1600 06/27/20 - Contacted [facility] at [phone], requesting authorization for continued inpatient stay. Spoke with social insurance analyst Jeremiah who stated business case analyst Elba has secured a bed to transfer patient to [facility] facility in [place]. microcomputer support specialist time is 1999 this evening. Informed nurse Shilpa of above information. Faxed [facility] transfer check-off list per her request. Asked social insurance analyst Jeremiah about authorization for 06/26/20, he stated to call back at [phone] to speak with business case analyst Elba.
--- NOTE | 2020-06-27 18:00 | NUR ---
Report given to chargemaster analyst, Lydia at [facility] in [place].
--- NOTE | 2020-06-27 19:53 | NUR ---
SPOKE WITH DEBBY FROM [facility] WHO WANTED UPDATED V/S, STATES TRANSPORT SHOULD BE HERE SHORTLY.
--- NOTE | 2020-06-27 20:45 | NUR ---
pt transported to [facility] in stable condition, with all belongings, IV patent, dc papers, no s/s of distress. tele box sent back to ICU
[2020-06-28 08:09] LABS: Immunoglobulin G, Serum 610 mg/dL (603-1613)
== END 2020-06-27 20:45 | disposition short-term general hospital (02) | DRG 246 ==
LOC: ER 02:18 → EDBD 02:18 → TELE 02:19 → TELE-CENTR 12:22
PROVIDERS: ADMIT Nurse Practitioner; ATTEND Family Medicine
PROC: 4A023N7 Measurement of Cardiac Sampling and Pressure, Left Heart, Percutaneous Approach (ICD-10-PCS; principal; 2020-06-24)
PROC: 027034Z Dilation of Coronary Artery, One Artery with Drug-eluting Intraluminal Device, Percutaneous Approach (ICD-10-PCS; 2020-06-24)
PROC: B211YZZ Fluoroscopy of Multiple Coronary Arteries using Other Contrast (ICD-10-PCS; 2020-06-24)
PROC: B215YZZ Fluoroscopy of Left Heart using Other Contrast (ICD-10-PCS; 2020-06-24)
PROC: 4A033BC Measurement of Arterial Pressure, Coronary, Percutaneous Approach (ICD-10-PCS; 2020-06-24)
DX: T82.855A Stenosis of coronary artery stent, initial encounter (principal); I21.4 Non-ST elevation (NSTEMI) myocardial infarction; N17.0 Acute kidney failure with tubular necrosis; E44.0 Moderate protein-calorie malnutrition; N18.5 Chronic kidney disease, stage 5; D68.9 Coagulation defect, unspecified; E87.2 Acidosis; I13.2 Hypertensive heart and chronic kidney disease with heart failure and with stage 5 chronic kidney disease, or end stage renal disease; D63.8 Anemia in other chronic diseases classified elsewhere; I25.10 Atherosclerotic heart disease of native coronary artery without angina pectoris; E87.5 Hyperkalemia; E11.22 Type 2 diabetes mellitus with diabetic chronic kidney disease; E78.5 Hyperlipidemia, unspecified; I50.9 Heart failure, unspecified; Z20.828 Contact with and (suspected) exposure to other viral communicable diseases; Y83.1 Surgical operation with implant of artificial internal device as the cause of abnormal reaction of the patient, or of later complication, without mention of misadventure at the time of the procedure; I25.2 Old myocardial infarction; Y92.89 Other specified places as the place of occurrence of the external cause; Z82.49 Family history of ischemic heart disease and other diseases of the circulatory system; Z85.01 Personal history of malignant neoplasm of esophagus; Z92.21 Personal history of antineoplastic chemotherapy; Z68.25 Body mass index [BMI] 25.0-25.9, adult
CPT/HCPCS: 36415; 71045; 76775; 80048; 80053; 81001; 82306; 82565; 82570; 82784; 82962; 83036; 83880; 83970; 84100; 84132; 84156; 84484; 84520; 85025; 85610; 85730; 86334; 92928; 93005; 93306; 93458; 93571; 96361; 96374; 96375; 99152; 99153; C1874; C1887; G0378; J0610; J1815; J2250; J2405; J3490; Q9956; Q9967

== ENCOUNTER 2020-07-07 00:20 | Inpatient (IN) | payer OTHER ==
[~2020-07-07] VITALS: Ht 177.8 cm; Wt 74.6 kg
[2020-07-07] VITALS (11 sets, daily range): BP systolic 135–187; BP diastolic 54–88
[~2020-07-07 00:20] MED LIST: AMLO5TAB15 PO; ATOR40TA52 PO; CLOP75TA41 PO; HYDR50TA15 PO; ISOS60TA24 PO; LISI-646 PO; LORA1TAB23 PO; METO25TA5 PO; SENN1TAB14 PO; TRAZ-184 PO; WARF5TAB71 PO; ZOLP5TAB5 PO
[2020-07-07 01:45] LABS: Basophils # (auto) 0.1 10 ^3/uL (0-0.2); Lymphocytes % (auto) 8.6 % (10.0-50.0); Mean Corpuscular Volume 87.8 fL (80.0-100.0); Monocytes # (auto) 0.5 10 ^3/uL (0-1.3); Neutrophils # (auto) 7.2 10 ^3/uL (1.6-8.6)
[2020-07-07] MEDS ORDERED: ONDANSETRON HCL 4 MG/2 ML VIAL IV ONE (01:45)
[2020-07-07] MEDS ORDERED: ASPirin 81 mg TAB PO ONE (01:45)
[2020-07-07] MEDS ORDERED: MORPHINE SULFATE 4 MG/ML SYR/VIAL IV ONE (01:45)
[2020-07-07 01:46] LABS: Basophils % (auto) 0.9 % (0.0-2.0); Eosinophils # (auto) 0.3 10 ^3/uL (0-0.8); Hematocrit 22.2 % (41.0-53.0); Hemoglobin 7.3 g/dL (13.5-17.5); Lymphocytes # (auto) 0.7 10 ^3/uL (0.4-5.4); Mean Corpuscular Hemoglobin 28.9 pg (28.0-32.0); Monocytes % (auto) 5.3 % (0.0-12.0); Neutrophils % (auto) 82.2 % (37.0-80.0); Nucleated Red Blood Cells % 0.1 %; Platelet Count (auto) 276 10^3/uL (140-450); Red Blood Cells 2.53 10^6/uL (4.5-5.90); Red Cell Distribution Width 15.4 % (11.8-14.3); White Blood Cell 8.7 10^3/uL (4.4-10.8)
[2020-07-07 01:49] LABS: Urine Bacteria FEW /hpf (None Seen); Urine Blood TRACE /uL (Negative); Urine Hyaline Cast FEW /lpf (0 - 2); Urine Mucus FEW (None Seen); Urine Specific Gravity 1.012 (1.001-1.035); Urine WBC 1 /hpf (0 - 3)
[2020-07-07 01:56] LABS: Albumin 2.5 g/dL (3.4-5.0); BUN/Creatinine Ratio 16.8; Calcium 8.1 mg/dL (8.5-10.1); Magnesium 1.9 mg/dL (1.6-2.6); Potassium 4.5 mmol/L (3.5-5.1)
[2020-07-07 02:01] LABS: Bilirubin, Total 0.3 mg/dL (0.2-1.0); INR 1.7 (0.9-1.15); Partial Thromboplastin Time 31.3 sec (23.0-31.2); Total Protein 5.9 g/dL (6.4-8.2)
[2020-07-07] MEDS ORDERED: levoFLOXacin 750MG 150 ML IV ONE ×2 (03:00→17:30)
[2020-07-07] MEDS ORDERED: NITROGLYCERIN 0.4 MG SL TAB SL ONE ×3 (03:33→04:00)
[2020-07-07] MEDS ORDERED: MORPHINE SULFATE 4 MG/ML SYR/VIAL ONE (03:33)
[2020-07-07] MEDS ORDERED: ONDANSETRON HCL 4 MG/2 ML VIAL ONE (03:43)
[2020-07-07] MEDS ORDERED: NITROGLYCERIN 0.4 MG SL TAB SL PRN (05:00)
[2020-07-07] MEDS ORDERED: MORPHINE SULF INJ 2 MG/ML SYRINGE 1ML IV PRN (05:00)
[2020-07-07] MEDS ORDERED: ONDANSETRON HCL 4 MG/2 ML VIAL IV PRN (05:45)
[2020-07-07] MEDS ORDERED: DEXTROSE (50%) 50ML SYRG IV PRN (05:45)
[2020-07-07] MEDS ORDERED: LABETALOL HCL 5 MG/ML 4ML SYRINGE IV ONE (05:45)
[2020-07-07] MEDS: ACCU-CHEK COMFORT CURVE STRIP VI SCH ×4 (06:26→23:53)
[2020-07-07] MEDS: InsuLIN REG 1unit/0.01ml Soln (100units/ml) SC SCH ×4 (06:30→23:55)
[2020-07-07] MEDS ORDERED: HEPARIN DRIP/D5W 100UNITS/ML 250 ML IV SCH (08:00)
[2020-07-07] MEDS ORDERED: HEPARIN DRIP/D5W 100UNITS/ML 250 ML IV ONE (08:38)
--- NOTE | 2020-07-07 08:42 | NUR ---
HEPARIN DRIP, SPOKE WITH RETAIL PRESENTATION SPECIALIST CHA-START HEPARIN DRIP WITH NO BOLUS PER PROTOCOL
[2020-07-07] MEDS ORDERED: ACETYLCYSTEINE ORAL for CIN 20%(200MG/ML) 4ML PO ONE (09:00)
[2020-07-07] MEDS ORDERED: SODIUM CHLORIDE 0.9% 500 ML IV SCH (09:00)
[2020-07-07 09:01] LABS: Basophils # (auto) 0.1 10 ^3/uL (0-0.2); Basophils % (auto) 1.3 % (0.0-2.0); Eosinophils # (auto) 0.3 10 ^3/uL (0-0.8); Lymphocytes % (auto) 14.7 % (10.0-50.0); Monocytes # (auto) 0.5 10 ^3/uL (0-1.3); Red Cell Distribution Width 15.8 % (11.8-14.3)
[2020-07-07 09:03] LABS: Eosinophils % (auto) 4.4 % (0.0-7.0); Hematocrit 20.2 % (41.0-53.0); Mean Corpuscular Hemoglobin 28.8 pg (28.0-32.0); Mean Corpuscular Hgb Conc. 32.7 g/dL (32.0-36.0); Mean Corpuscular Volume 88.1 fL (80.0-100.0); Monocytes % (auto) 7.9 % (0.0-12.0); Neutrophils # (auto) 4.8 10 ^3/uL (1.6-8.6); Neutrophils % (auto) 71.7 % (37.0-80.0); Platelet Count (auto) 253 10^3/uL (140-450); White Blood Cell 6.7 10^3/uL (4.4-10.8)
[2020-07-07 09:17] LABS: Hemoglobin 6.6 g/dL (13.5-17.5)
[2020-07-07 09:20] LABS: INR 1.71 (0.9-1.15); Partial Thromboplastin Time 31.6 sec (23.0-31.2)
--- NOTE | 2020-07-07 09:41 | NUR ---
Admit to [facility] MARGRET,CLEOWARDadmitted to [facility] via gurney on monitoring and evaluation advisor, and portable 02. Patient transfered to bed, connected to unit monitoring and oxygen, and weighed by bedscale. Patient oriented to Gavin reynoso RN, unit, room, bed, and unit policies regarding patient care and visiting hours. All questions and concerns addressed, patient verbalized understanding.
[2020-07-07] MEDS: hydrALAZINE HCL 25 MG TAB PO SCH ×2 (09:55→22:13)
[2020-07-07] MEDS: amLODIPine BESYLATE 5 MG TAB PO SCH (09:55)
[2020-07-07] MEDS: METOPROLOL TARTRATE 25 MG TAB PO SCH ×2 (09:55→22:14)
[2020-07-07] MEDS: ASPirin 81 mg TAB PO SCH (09:55)
[2020-07-07] MEDS: NTG 0.1MG/HR TOPICAL PATCH TD SCH (09:56)
[2020-07-07] MEDS ORDERED: CLOPIDOGREL BISULFATE 75 MG TAB PO SCH (10:00)
[2020-07-07] MEDS ORDERED: LISINOPRIL 20 MG TAB PO SCH (10:00)
[2020-07-07] MEDS ORDERED: PANTOPRAZOLE 40 MG TAB PO SCH (10:00)
[2020-07-07] MEDS ORDERED: PROMETHAZINE HCL 25 MG/ML 1ML IV PRN (11:45)
[2020-07-07] MEDS ORDERED: cloNIDine HCL 0.1 MG TAB PO PRN (12:00)
[2020-07-07] MEDS: SUCRALFATE 1 GM/10 ML ORAL SUSP PO SCH ×3 (12:45→22:13)
--- NOTE | 2020-07-07 12:55 | NUR ---
GILDARDO COHEN AT [phone] WANTED TO TOUCH BASES WITH RN AND LET US KNOW IF WE NEED ANYTHING
--- NOTE | 2020-07-07 13:49 | NUR ---
ELEVATED BLOOD PRESSURE 180/[address] CHAPPELL NOTIFIED, ORDERS RECEIVED
[2020-07-07] MEDS ORDERED: LIDOCAINE 2%HCL (LOCAL ANESTH.) INJ 20ML MDV ONE (13:54)
[2020-07-07] MEDS ORDERED: IODIXANOL 320MG/ML 100ML BTL IV ONE (13:54)
[2020-07-07] MEDS ORDERED: hydrALAZINE HCL 20 MG/ML VL IV PRN (14:00)
[2020-07-07] MEDS ORDERED: HEPARIN SODIUM (PORCINE) 5000 UNITS/ML 1ML VIAL ONE (14:07)
[2020-07-07] MEDS ORDERED: ANGIOMAX 250 MG VIAL IV ONE (14:07)
[2020-07-07] MEDS ORDERED: SODIUM CHL 0.9% 50 ML ONE (14:08)
[2020-07-07] MEDS ORDERED: fentaNYL CITRATE 100 MCG/2 ML VL ONE (14:08)
[2020-07-07] MEDS ORDERED: VERAPAMIL 2.5MG/ML INJ 2ML VIAL IV ONE (14:08)
[2020-07-07] MEDS ORDERED: MIDAZOLAM HCL 1MG/1ML-2 ML VIAL ONE (14:08)
[2020-07-07] MEDS ORDERED: ALBU1AER4 IN (14:36)
[2020-07-07] MEDS ORDERED: SENN1TAB14 PO (14:36)
[2020-07-07] MEDS ORDERED: MECL1TAB42 PO (14:36)
--- NOTE | 2020-07-07 15:08 | NUR ---
PATIENT TAKEN TO HVAC ESTIMATOR VIA HVAC ESTIMATOR TEAM
--- NOTE | 2020-07-07 15:11 | NUR ---
THAD CHURCHILL UPDATED ON PATIENT STATUS. ALL QUESTIONS AND CONCERNS ADDRESSED AT THIS TIME Addendum: 07/07/20 at 1521 by Gavin Sebastian RN WRONG PATIENT
[2020-07-07 15:17] LABS: INR 1.62 (0.9-1.15); Partial Thromboplastin Time 51.1 sec (23.0-31.2)
--- NOTE | 2020-07-07 15:31 | NUR ---
FAMILY DAUGHTER ANGELO UPDATED ON PATIENT STATUS. ALL QUESTIONS AND CONCERNS ADDRESSED AT THIS TIME
[2020-07-07] MEDS ORDERED: methylPREDNISolone SOD SUCC 125 MG/2 ML VL ONE (16:02)
[2020-07-07] MEDS ORDERED: diphenhdrAMINE HCL 50 MG/1 ML VL ONE (16:02)
[2020-07-07] MEDS ORDERED: FAMOTIDINE (10MG/ML) 2ML VL IV ONE (16:02)
[2020-07-07] MEDS ORDERED: levoFLOXacin 250MG 50 ML IV SCH (16:15)
[2020-07-07] MEDS ORDERED: FUROSEMIDE 20 MG/2 ML VIAL IV ONE (16:30)
[2020-07-07] MEDS ORDERED: hydrALAZINE HCL 20 MG/ML VL ONE (16:51)
[2020-07-07] MEDS ORDERED: CLOPIDOGREL BISULFATE 75 MG TAB ONE (17:10)
--- NOTE | 2020-07-07 17:50 | NUR ---
PATIENT BACK FROM [facility]AL CAGER LEFT GROIN SITE BENIGN, MINIMAL CHEST PAIN AT THIS TIME.
--- NOTE | 2020-07-07 17:50 | NUR ---
HEPARIN DRIP STOPPED BY PER DIELECTRIC EMBOSSING MACHINE OPERATOR NURSE
--- NOTE | 2020-07-07 18:35 | NUR ---
HOSPITALIST PAGED REGARDING POSITIVE BLOOD CULTURES
--- NOTE | 2020-07-07 20:00 | NUR ---
SHIFT OPENING NOTE RECEIVED PATIENT AWAKE, ALERT AND ORIENTED X4. NO SOB, DISTRESS OR PAIN NOTED. PATIENT IS STATUS POST C WITH STENTS. LEFT GROIN DRESSING IS C/D/I WITH NO HEMATOMA OR BLEEDING NOTED. NORMAL PULSES TO LOWER LEFT EXTREMITY. ON 2L N/C. USES URINAL INDEPENDENTLY. PHYSICAL ASSESSMENT COMPLETED, SEE INTERVENTIONS. INSTRUCTED ON POC AND TO CALL FOR ASSIST NEEDED. BED IS IN THE LOWEST POSITION WITH SIDE RAILS UP X2, CALL LIGHT IS WITHIN REACH.
[2020-07-07 21:34] LABS: INR 2.12 (0.9-1.15); Partial Thromboplastin Time 64.4 sec (23.0-31.2)
--- NOTE | 2020-07-07 22:00 | NUR ---
HYGIENE CARE FULL BED BATH PERFORMED USING WARM SOAPY WASH CLOTHES. GOWN CHANGED. FULL LINEN CHANGED. PATIENT REPOSITIONED FOR COMFORT. PATIENT TOLERATED IT WELL.
[2020-07-07] MEDS: PANTOPRAZOLE 40 MG/10 ML VIAL INJ IV SCH (22:12)
[2020-07-07] MEDS: ACETYLCYSTEINE ORAL for CIN 20%(200MG/ML) 4ML PO SCH (22:14)
[2020-07-08 03:26] LABS: Basophils # (auto) 0 10 ^3/uL (0-0.2); Basophils % (auto) 0.2 % (0.0-2.0); Eosinophils # (auto) 0 10 ^3/uL (0-0.8); Hemoglobin 9.9 g/dL (13.5-17.5); Lymphocytes # (auto) 0.3 10 ^3/uL (0.4-5.4); Lymphocytes % (auto) 6.4 % (10.0-50.0); Mean Corpuscular Hemoglobin 28.2 pg (28.0-32.0); Mean Corpuscular Hgb Conc. 31.8 g/dL (32.0-36.0); Mean Corpuscular Volume 88.7 fL (80.0-100.0); Monocytes # (auto) 0 10 ^3/uL (0-1.3); Monocytes % (auto) 0.8 % (0.0-12.0); Neutrophils # (auto) 4.5 10 ^3/uL (1.6-8.6); Neutrophils % (auto) 92.6 % (37.0-80.0); Platelet Count (auto) 220 10^3/uL (140-450); Red Blood Cells 3.49 10^6/uL (4.5-5.90); Red Cell Distribution Width 15.7 % (11.8-14.3); White Blood Cell 4.8 10^3/uL (4.4-10.8)
[2020-07-08 03:40] LABS: INR 1.77 (0.9-1.15)
[2020-07-08 03:44] LABS: Albumin 2.3 g/dL (3.4-5.0); Calcium 8.4 mg/dL (8.5-10.1); Potassium 5.1 mmol/L (3.5-5.1)
[2020-07-08 03:46] LABS: BUN/Creatinine Ratio 15.4
[2020-07-08 03:50] LABS: Bilirubin, Total 0.4 mg/dL (0.2-1.0)
[2020-07-08 04:00] VITALS: BP 149/59
[2020-07-08] MEDS: InsuLIN REG 1unit/0.01ml Soln (100units/ml) SC SCH ×3 (05:50→18:00)
[2020-07-08] MEDS: SUCRALFATE 1 GM/10 ML ORAL SUSP PO SCH ×4 (05:51→22:02)
[2020-07-08] MEDS: ACCU-CHEK COMFORT CURVE STRIP VI SCH ×3 (05:51→18:43)
--- NOTE | 2020-07-08 05:52 | NUR ---
SPOKE WITH DAUGHTER ANGELO UPDATED HER ON PATIENTS STATUS AND POC VERBALIZED UNDERSTANDING.
--- NOTE | 2020-07-08 07:30 | NUR ---
END OF SHIFT REPORT GIVEN AND CARE ENDORSED TO SUHAIL MANCUSO.
[2020-07-08 08:00] VITALS: BP 149/49
--- NOTE | 2020-07-08 08:15 | NUR ---
ACTIVITY Patient requested to get out of bed and into chair, tolerated well. Complete linen change done at this time.
--- NOTE | 2020-07-08 09:55 | NUR ---
HOSPICE Received phone call from Hospice nurse Isabel cummings [place] updated on patient condition.
[2020-07-08] MEDS: hydrALAZINE HCL 25 MG TAB PO SCH ×2 (10:00→18:36)
[2020-07-08] MEDS: PANTOPRAZOLE 40 MG/10 ML VIAL INJ IV SCH ×2 (10:06→22:02)
[2020-07-08] MEDS: METOPROLOL TARTRATE 25 MG TAB PO SCH ×2 (10:09→22:00)
[2020-07-08] MEDS: ASPirin 81 mg TAB PO SCH (10:09)
[2020-07-08] MEDS: amLODIPine BESYLATE 5 MG TAB PO SCH (10:09)
[2020-07-08] MEDS: ACETYLCYSTEINE ORAL for CIN 20%(200MG/ML) 4ML PO SCH ×2 (10:14→22:04)
[2020-07-08] MEDS: NTG 0.1MG/HR TOPICAL PATCH TD SCH (10:15)
--- NOTE | 2020-07-08 10:15 | NUR ---
MD Dr. Fan Mathur called and spoke to MD regarding diet and potassium of 5.1. States " Will see patient shortly regarding potassium of 5.1." This RN to input new order into system. Will continue to monitor patient.
[2020-07-08] MEDS ORDERED: cefTRIAXone 1GM/50ML D5W 50 ML IV ONE (11:00)
--- NOTE | 2020-07-08 11:00 | NUR ---
ACTIVITY Patient requested to get out of bed and into chair with stand by assist, patient tolerated well. Will continue to monitor patient.
--- NOTE | 2020-07-08 11:05 | NUR ---
MD Dr. Interiano at bedside updated on patient condition and MD spoke to patient and updated on condition. MD aware of potassium 5.1 with no new orders. Will continue to monitor patient.
--- NOTE | 2020-07-08 11:30 | NUR ---
MD Dr. Lehman at bedside updated on patient condition with no new orders. MD spoke to patient regarding plan of care. Will continue to monitor patient closely.
[2020-07-08 12:00] VITALS: BP 115/43
--- NOTE | 2020-07-08 12:45 | NUR ---
ACTIVITY Patient back in bed.
--- NOTE | 2020-07-08 13:40 | NUR ---
MD Dr. Mathew at bedside updated on patient condition and spoke to patient regarding plan of care. New orders received this RN to input into system. Will continue to monitor patient.
[2020-07-08 16:00] VITALS: BP 133/99
--- NOTE | 2020-07-08 16:05 | NUR ---
FAMILY Received ohone call from daughter Kim, password provided and updated on patient.
[2020-07-08] MEDS: levoFLOXacin 500MG 100 ML IV SCH (17:13)
--- NOTE | 2020-07-08 18:00 | NUR ---
ACTIVITY Patient requested to get out of bed and into chair with stand by assist, patient tolerated well. Will continue to monitor patient.
--- NOTE | 2020-07-08 19:30 | NUR ---
Opening Shift Note Received report from day shift RN Jayne. Pt came in on 07/07/20 with a chief complaint of chest pain. Pt is also being seen for possible GI bleed due to hemoglobin of 6.6 and 2 units of PRBC's transfused in this visit. Pt was admitted to [facility] with a diagnosis of NSTEMI. Pt's pertinent history includes SD, 11 previous stents (on 07/07 Pt was taken to the laboratory inspector by Dr Mathew and he placed 2 more stents to RCA) bringing that to a total of 13 stents, CKD stage IV, HTN, and esophageal cancer with last chemo being in 2019. All history obtained and confirmed by chart, previous RN, and patient. Pt was COVID negative. Pt is a full code, currently OOB eating dinner AAOx4. VSS, bed is locked at lowest position, pt educated container packer operator light and instructed to call RN before getting up. Pt verbalized understanding, will continue to monitor.
[2020-07-08 20:00] VITALS: BP 165/84
[2020-07-08] MEDS: TEMAZEPAM 15 MG CAP PO PRN (22:02)
--- NOTE | 2020-07-08 22:04 | NUR ---
Nausea Pt stating he feels nauseous. Pt states he felt slightly nauseous after lunch and now after dinner he feels a little nauseous as well. Medication given according to doctors orders for nausea. Will continue to monitor.
[2020-07-09] VITALS: BP 139/51
--- NOTE | 2020-07-09 | NUR ---
Partial Linen change Partial linen change provided for the patient. Pt tolerated well. Will continue to monitor.
[2020-07-09] MEDS: hydrALAZINE HCL 25 MG TAB PO SCH ×4 (00:27→17:41)
[2020-07-09] MEDS: ACCU-CHEK COMFORT CURVE STRIP VI SCH ×4 (00:27→17:41)
[2020-07-09] MEDS: InsuLIN REG 1unit/0.01ml Soln (100units/ml) SC SCH ×4 (00:28→17:43)
[2020-07-09 03:12] LABS: Basophils # (auto) 0 10 ^3/uL (0-0.2); Basophils % (auto) 0.4 % (0.0-2.0); Eosinophils # (auto) 0 10 ^3/uL (0-0.8); Eosinophils % (auto) 0.5 % (0.0-7.0); Hematocrit 25.8 % (41.0-53.0); Hemoglobin 8.6 g/dL (13.5-17.5); Lymphocytes # (auto) 0.9 10 ^3/uL (0.4-5.4); Lymphocytes % (auto) 8.6 % (10.0-50.0); Mean Corpuscular Hemoglobin 28.9 pg (28.0-32.0); Mean Corpuscular Hgb Conc. 33.4 g/dL (32.0-36.0); Mean Corpuscular Volume 86.7 fL (80.0-100.0); Monocytes # (auto) 0.7 10 ^3/uL (0-1.3); Monocytes % (auto) 6.7 % (0.0-12.0); Neutrophils # (auto) 8.4 10 ^3/uL (1.6-8.6); Neutrophils % (auto) 83.8 % (37.0-80.0); Platelet Count (auto) 238 10^3/uL (140-450); Red Blood Cells 2.98 10^6/uL (4.5-5.90); Red Cell Distribution Width 15.3 % (11.8-14.3)
[2020-07-09 03:29] LABS: BUN/Creatinine Ratio 15.4; Calcium 8.2 mg/dL (8.5-10.1); Potassium 4.5 mmol/L (3.5-5.1)
[2020-07-09 04:00] VITALS: BP 142/53
--- NOTE | 2020-07-09 05:14 | NUR ---
Bed bath refusal Pt states he does not want a bed bath tonight. Pt educated on infection control and importance of bed baths. Pt verbalized understanding but continued to refuse. Will continue to monitor.
[2020-07-09] MEDS: SUCRALFATE 1 GM/10 ML ORAL SUSP PO SCH ×4 (06:37→21:28)
[2020-07-09 08:00] VITALS: BP 132/41
--- NOTE | 2020-07-09 08:20 | NUR ---
DR. CHAPPELL HERE TO SEE PATIENT. SEE MD NOTES AND EMR FOR ANY NEW ORDERS.
[2020-07-09] MEDS ORDERED: HYDROcodone-ACET 5/325MG TAB PO PRN (08:30)
[2020-07-09] MEDS: cefTRIAXone 1GM/50ML D5W 50 ML IV SCH (08:43)
[2020-07-09] MEDS: amLODIPine BESYLATE 5 MG TAB PO SCH (10:00)
[2020-07-09] MEDS: METOPROLOL TARTRATE 25 MG TAB PO SCH ×2 (10:00→21:32)
[2020-07-09] MEDS: PANTOPRAZOLE 40 MG/10 ML VIAL INJ IV SCH ×2 (10:07→21:28)
[2020-07-09] MEDS: ASPirin 81 mg TAB PO SCH (10:07)
[2020-07-09] MEDS: CLOPIDOGREL BISULFATE 75 MG TAB PO SCH (10:07)
[2020-07-09] MEDS: NTG 0.1MG/HR TOPICAL PATCH TD SCH (10:08)
--- NOTE | 2020-07-09 10:51 | NUR ---
DR. SOUZA HERE TO SEE PATIENT. SEE MD NOTES AND EMR FOR ANY NEW ORDERS.
[2020-07-09] MEDS ORDERED: LACTULOSE 20Gm/30ML SOLN PO PRN (11:00)
[2020-07-09 12:00] VITALS: BP 124/48
[2020-07-09] MEDS ORDERED: SODIUM CHLORIDE 0.9% 1,000 ML IV ONE (15:00)
--- NOTE | 2020-07-09 15:18 | NUR ---
[facility] pt transferred to floor CLEO OSWALDDENNISE transferred to [address] via WHEEL CHAIR on monitoring manager. All patient medications and personal belongings transfered with patient to receiving floor. Patient care transferred to CHERI MANCUSO, REPORT GIVEN TO LINDSEY MANCUSO.
--- NOTE | 2020-07-09 15:50 | NUR ---
TRANSFER FROM [facility] RECEIVED PATIENT FROM [facility]. TELE #[address] NSR 63 BPM. BED IN LOWEST/LOCKED POSITION, BED RAILS UP X2, CALL LIGHT WITHIN REACH
[2020-07-09 16:48] VITALS: BP 134/57
--- NOTE | 2020-07-09 16:50 | NUR ---
FAMILY UPDATE UPDATED FAMILY, ANGELO, DAUGHTER AFTER PW OBTAINED. ALL QUESTIONS/CONCERNS ANSWERED. WILL CONTINUE TO MONITOR
--- NOTE | 2020-07-09 19:30 | NUR ---
Opening Shift Note Assumed care of patient, awake and alert. No S/S of distress/SOB or pain. Instructed on POC and to call for assist PRN, will continue to monitor for changes Q1hr and PRN.
[2020-07-09] MEDS: TEMAZEPAM 15 MG CAP PO PRN (21:29)
[2020-07-09 22:00] VITALS: BP 151/61
[2020-07-10] MEDS: hydrALAZINE HCL 25 MG TAB PO SCH ×5 (00:22→23:47)
[2020-07-10] MEDS: ACCU-CHEK COMFORT CURVE STRIP VI SCH ×5 (00:23→23:47)
[2020-07-10] MEDS: InsuLIN REG 1unit/0.01ml Soln (100units/ml) SC SCH ×5 (00:27→23:48)
[2020-07-10 05:30] VITALS: BP 190/78
[2020-07-10] MEDS: SUCRALFATE 1 GM/10 ML ORAL SUSP PO SCH ×4 (06:15→21:32)
--- NOTE | 2020-07-10 07:00 | NUR ---
OPENING SHIFT NOTE RECEIVED REPORT ON THE PATIENT. AWAKE LYING IN BED. PATIENT SHOWS NO SIGNS OF DISTRESS AT THIS TIME. DISCUSSED THE PLAN OF CARE WITH THE PATIENT. BED IN LOWEST POSITION, SIDE RAILS UP X2, AND THE CALL LIGHT IS WITHIN REACH.
--- NOTE | 2020-07-10 08:39 | NUR ---
DR CHAPPELL AT BEDSIDE. NEW ORDERS RECEIVED.
[2020-07-10 08:49] LABS: Basophils # (auto) 0.1 10 ^3/uL (0-0.2); Basophils % (auto) 0.9 % (0.0-2.0); Eosinophils # (auto) 0.2 10 ^3/uL (0-0.8); Eosinophils % (auto) 2.3 % (0.0-7.0); Hematocrit 30.4 % (41.0-53.0); Hemoglobin 9.9 g/dL (13.5-17.5); Lymphocytes # (auto) 0.8 10 ^3/uL (0.4-5.4); Lymphocytes % (auto) 11.7 % (10.0-50.0); Mean Corpuscular Hemoglobin 28.7 pg (28.0-32.0); Mean Corpuscular Hgb Conc. 32.7 g/dL (32.0-36.0); Mean Corpuscular Volume 87.6 fL (80.0-100.0); Monocytes # (auto) 0.5 10 ^3/uL (0-1.3); Monocytes % (auto) 7.6 % (0.0-12.0); Neutrophils # (auto) 5.6 10 ^3/uL (1.6-8.6); Neutrophils % (auto) 77.5 % (37.0-80.0); Platelet Count (auto) 313 10^3/uL (140-450); Red Blood Cells 3.47 10^6/uL (4.5-5.90); Red Cell Distribution Width 15.5 % (11.8-14.3); White Blood Cell 7.3 10^3/uL (4.4-10.8)
[2020-07-10 08:58] LABS: Calcium 8.3 mg/dL (8.5-10.1); Potassium 4.6 mmol/L (3.5-5.1)
[2020-07-10 09:00] VITALS: BP 158/79
[2020-07-10 09:02] LABS: BUN/Creatinine Ratio 16.5
--- NOTE | 2020-07-10 09:26 | NUR ---
PAGED DR LAM REGRADING AN ELEVATED BUN 83 AND CREAT 5.04. AWAITING A CALL BACK.
[2020-07-10] MEDS: PANTOPRAZOLE 40 MG/10 ML VIAL INJ IV SCH ×2 (09:39→21:32)
[2020-07-10] MEDS: ASPirin 81 mg TAB PO SCH (09:39)
[2020-07-10] MEDS: cefTRIAXone 1GM/50ML D5W 50 ML IV SCH (09:39)
[2020-07-10] MEDS: METOPROLOL TARTRATE 25 MG TAB PO SCH ×2 (09:40→21:33)
[2020-07-10] MEDS: amLODIPine BESYLATE 5 MG TAB PO SCH (09:40)
[2020-07-10] MEDS: CLOPIDOGREL BISULFATE 75 MG TAB PO SCH (09:40)
[2020-07-10] MEDS: NTG 0.1MG/HR TOPICAL PATCH TD SCH (09:58)
--- NOTE | 2020-07-10 10:31 | NUR ---
IV removal IV DC'd with clean sterile technique, catheter fully intact. Pressure dressing applied to site. Patient tolerated well. NOTE: []
--- NOTE | 2020-07-10 10:54 | NUR ---
Nutrition Assessment Est energy needs [id number] kcal (20-25 kcal/kg BW 75.6kg) Est protein needs 60-68g (0.8-0.9g/kg BW 75.6kg, r/t elevated RFTs) Will monitor and reassess prn. Addendum: 07/10/20 at [address] Amended: Links added.
[2020-07-10 13:00] VITALS: BP 148/58
--- NOTE | 2020-07-10 13:25 | NUR ---
DR LAM AT BEDSIDE. INFORMED OF BUN AND CREAT. NO NEW ORDERS RECEIVED.
--- NOTE | 2020-07-10 13:25 | NUR ---
IV removal IV DC'd with clean sterile technique, catheter fully intact. Pressure dressing applied to site. Patient tolerated well. NOTE: []
--- NOTE | 2020-07-10 14:01 | NUR ---
IV insertion IV access obtained, via clean sterile technique by inserting 22 gauge catheter at the right forearm after 2 attempt(s). IV secured properly. No trauma to site. Patient tolerated well. NOTE: []
[2020-07-10 17:00] VITALS: BP 151/67
[2020-07-10] MEDS: levoFLOXacin 500MG 100 ML IV SCH (17:45)
[2020-07-10] MEDS: TEMAZEPAM 15 MG CAP PO PRN (21:32)
[2020-07-10 22:00] VITALS: BP 153/68
[2020-07-11] VITALS (7 sets, daily range): BP systolic 125–191; BP diastolic 64–103
[2020-07-11] MEDS: InsuLIN REG 1unit/0.01ml Soln (100units/ml) SC SCH ×3 (06:00→17:18)
[2020-07-11] MEDS: SUCRALFATE 1 GM/10 ML ORAL SUSP PO SCH ×4 (06:16→21:50)
[2020-07-11] MEDS: ACCU-CHEK COMFORT CURVE STRIP VI SCH ×4 (06:16→23:59)
[2020-07-11] MEDS: hydrALAZINE HCL 25 MG TAB PO SCH ×4 (06:17→23:59)
[2020-07-11 06:20] LABS: Basophils # (auto) 0.1 10 ^3/uL (0-0.2); Eosinophils # (auto) 0.2 10 ^3/uL (0-0.8); Eosinophils % (auto) 3.4 % (0.0-7.0); Hematocrit 29.5 % (41.0-53.0); Hemoglobin 9.6 g/dL (13.5-17.5); Lymphocytes # (auto) 0.8 10 ^3/uL (0.4-5.4); Mean Corpuscular Hemoglobin 28.9 pg (28.0-32.0); Mean Corpuscular Hgb Conc. 32.6 g/dL (32.0-36.0); Mean Corpuscular Volume 88.9 fL (80.0-100.0); Monocytes # (auto) 0.5 10 ^3/uL (0-1.3); Monocytes % (auto) 7.2 % (0.0-12.0); Neutrophils # (auto) 5.5 10 ^3/uL (1.6-8.6); Neutrophils % (auto) 77.4 % (37.0-80.0); Nucleated Red Blood Cells % 0.1 %; Platelet Count (auto) 267 10^3/uL (140-450); Red Blood Cells 3.32 10^6/uL (4.5-5.90); Red Cell Distribution Width 15.5 % (11.8-14.3); White Blood Cell 7.2 10^3/uL (4.4-10.8)
--- NOTE | 2020-07-11 07:00 | NUR ---
OPENING SHIFT NOTE Assumed care of patient from slot shift manager RN. Patient is alert and oriented x4, no signs of distress noted, patient denies pain. He was updated on the plan of care and verbalized understanding. Bed is locked, in the lowest position, side rails are up x2 and call light is in reach. He was encouraged to call for assistance as needed.
[2020-07-11] MEDS: cefTRIAXone 1GM/50ML D5W 50 ML IV SCH (08:33)
[2020-07-11] MEDS: PANTOPRAZOLE 40 MG/10 ML VIAL INJ IV SCH ×2 (09:51→21:50)
[2020-07-11] MEDS: amLODIPine BESYLATE 5 MG TAB PO SCH (09:52)
[2020-07-11] MEDS: CLOPIDOGREL BISULFATE 75 MG TAB PO SCH (09:52)
[2020-07-11] MEDS: METOPROLOL TARTRATE 25 MG TAB PO SCH ×2 (09:52→21:50)
[2020-07-11] MEDS: ASPirin 81 mg TAB PO SCH (09:52)
[2020-07-11] MEDS: NTG 0.1MG/HR TOPICAL PATCH TD SCH (09:53)
--- NOTE | 2020-07-11 12:03 | NUR ---
TA AT BEDSIDE updated on the patient status, plan of care was discussed with the patient, Per MD patient will be transferred to [facility].
--- NOTE | 2020-07-11 13:33 | NUR ---
CALLED FAMILY called daughter Kim. After verification of password she was updated on the patient status and the plan of care. All questions answered and she verbalized understanding.
[2020-07-11 15:53] LABS: Hepatitis C Antibody Negative (Negative)
--- NOTE | 2020-07-11 17:45 | NUR ---
CALL FROM [facility] spoke with Demetra. No one from [facility] has spoken with the patient. Patient does not was to be transferred to [facility]. Demetra made aware. Per Demetra her shelter case manager will speak with the patient. [facility], Patient refused COVID test and wants to wait to speak with the [facility] shelter case manager.
--- NOTE | 2020-07-11 19:15 | NUR ---
Opening Shift Note Received report from Isabel MANCUSO. Assumed care of patient, awake and alert. No S/S of distress/SOB or pain. Instructed on POC and to call for assist PRN. Fall precaution measures in place, will continue to monitor for changes Q1hr and PRN.
--- NOTE | 2020-07-11 20:19 | NUR ---
Received call from [facility], spoke to Cyndee and states no bed available in [facility] but working on [facility]. I informed Cyndee that patient doesn't want to transfer to [facility]. Per Cyndee they will call again tomorrow to see if patient change his mind regarding the transfer. Patient made aware of the call from [facility].
[2020-07-11] MEDS: TEMAZEPAM 15 MG CAP PO PRN (21:56)
[2020-07-12] MEDS: InsuLIN REG 1unit/0.01ml Soln (100units/ml) SC SCH ×4 (00:02→18:07)
[2020-07-12 05:21] VITALS: BP 157/62
[2020-07-12 06:22] LABS: Albumin 2.2 g/dL (3.4-5.0); Calcium 8.2 mg/dL (8.5-10.1); Potassium 4.8 mmol/L (3.5-5.1)
[2020-07-12 06:26] LABS: BUN/Creatinine Ratio 14.4; Bilirubin, Total 0.2 mg/dL (0.2-1.0); Total Protein 5.3 g/dL (6.4-8.2)
[2020-07-12] MEDS: ACCU-CHEK COMFORT CURVE STRIP VI SCH ×3 (06:28→17:42)
[2020-07-12] MEDS: hydrALAZINE HCL 25 MG TAB PO SCH ×3 (06:28→17:41)
[2020-07-12] MEDS: SUCRALFATE 1 GM/10 ML ORAL SUSP PO SCH ×4 (06:30→21:46)
--- NOTE | 2020-07-12 07:30 | NUR ---
OPENING SHIFT NOTE RECEIVED REPORT AND CONTINUATION OF CARE OF PATIENT. AWAKE,ALERT.ORIENTED SITTING UP AT BEDSIDE CHAIR, PATIENT SHOWS NO SIGNS OF DISTRESS OR CHEST PAIN. DISCUSSED THE PLAN OF CARE AND NURSING ROUTINES WITH PATIENT. BED IN LOWEST POSITION, SIDE RAILS UP X2, AND THE CALL LIGHT IS WITHIN REACH,PATIENT REMINDED,INSTRUCTED TO CALL FOR ASSISTANCE,VERBALIZED UNDERSTANDING.
--- NOTE | 2020-07-12 07:57 | NUR ---
DAUGHTER ANGELO CALLED (PASSWORD VERIFIED) UPDATED WITH PLAN OF CARE
[2020-07-12 08:55] VITALS: BP 160/70
[2020-07-12] MEDS: PANTOPRAZOLE 40 MG/10 ML VIAL INJ IV SCH ×2 (10:25→21:46)
[2020-07-12] MEDS: cefTRIAXone 1GM/50ML D5W 50 ML IV SCH (10:25)
[2020-07-12] MEDS: NTG 0.1MG/HR TOPICAL PATCH TD SCH (10:26)
[2020-07-12] MEDS: amLODIPine BESYLATE 5 MG TAB PO SCH (10:26)
[2020-07-12] MEDS: ASPirin 81 mg TAB PO SCH (10:26)
[2020-07-12] MEDS: METOPROLOL TARTRATE 25 MG TAB PO SCH ×2 (10:27→21:46)
[2020-07-12] MEDS: CLOPIDOGREL BISULFATE 75 MG TAB PO SCH (10:27)
--- NOTE | 2020-07-12 11:30 | NUR ---
TIAGO FROM [facility] CALLED,RECEIVED UPDATES ABOUT TRANSFER,STATED PATIENT IS WILLING TO BE TRANSFERRED TO [facility],REQUESTED RAPID COVID TO BE DONE.
--- NOTE | 2020-07-12 11:30 | NUR ---
DR. Fan CHAPPELL HERE TO SEE AND EXAMINED PATIENT AWARE OF TRANSFER AND NEEDING RAPID COVID,RECEIVED ORDER
--- NOTE | 2020-07-12 12:43 | NUR ---
RAPID COVID SENT TO LAB FOR STUDY
[2020-07-12 13:00] VITALS: BP 164/74
--- NOTE | 2020-07-12 13:12 | NUR ---
RAPID COVID STILL PENDING
--- NOTE | 2020-07-12 14:17 | NUR ---
UA SPECIMEN SENT TO LAB
--- NOTE | 2020-07-12 14:30 | NUR ---
DECEMBER FROM [facility] CALLED,WAS INFORMED BY COVERING RN (RN AT [facility]) THAT PATIENT NEGATIVE FOR RAPID COVID
--- NOTE | 2020-07-12 15:13 | NUR ---
Assessment Patient is a 74-year-old male, who is alert and oriented. Patient cognitive abilities are intact. Patient states that he can do all ADLs and ambulates independently. Patient emotional state appears frustrated and angry, due to his diagnosis. Patient is retired and receives social security benefits. Patient states that he lives with his daughter (Kim [phone]), patient daughter will provide transportation for discharge. Patient will return home post discharge. Patient states that his daughter is his support system. Patient was not receptive to receive Advance Directive forms. Discharge planning: SW had provided resources for counseling therapy. Patient has no other post discharge needs to identify at the moment. Addendum: 07/12/20 at 1513 by WILFRED SELF Amended: Links added.
[2020-07-12 15:58] LABS: Protein, Urine 626.8 mg/dL (0.0-11.9)
[2020-07-12 17:15] VITALS: BP 148/58
[2020-07-12] MEDS: levoFLOXacin 500MG 100 ML IV SCH (17:42)
--- NOTE | 2020-07-12 18:17 | NUR ---
May from [place] called stated transfer is cancelled.she will let [employer] know in a.m.
[2020-07-12 22:34] VITALS: BP 157/65
[2020-07-13] MEDS: hydrALAZINE HCL 25 MG TAB PO SCH ×3 (00:01→12:21)
[2020-07-13] MEDS: ACCU-CHEK COMFORT CURVE STRIP VI SCH ×3 (00:01→12:25)
[2020-07-13] MEDS: InsuLIN REG 1unit/0.01ml Soln (100units/ml) SC SCH ×3 (00:02→12:36)
[2020-07-13] MEDS: TEMAZEPAM 15 MG CAP PO PRN (00:02)
[2020-07-13 05:23] VITALS: BP 140/68
[2020-07-13] MEDS: SUCRALFATE 1 GM/10 ML ORAL SUSP PO SCH ×3 (06:32→16:40)
--- NOTE | 2020-07-13 07:30 | NUR ---
OPENING SHIFT NOTE RECEIVED REPORT AND CONTINUATION OF CARE OF PATIENT. AWAKE,ALERT.ORIENTED SITTING AT BEDSIDE CHAIR, PATIENT SHOWS NO SIGNS OF DISTRESS OR CHEST PAIN. DISCUSSED THE PLAN OF CARE AND NURSING ROUTINES WITH PATIENT. BED IN LOWEST POSITION, SIDE RAILS UP X2, AND THE CALL LIGHT IS WITHIN REACH,PATIENT REMINDED,INSTRUCTED TO CALL FOR ASSISTANCE,VERBALIZED UNDERSTANDING.
[2020-07-13 08:00] VITALS: BP 145/62
[2020-07-13 09:45] LABS: Albumin 2.7 g/dL (3.4-5.0); Calcium 8.7 mg/dL (8.5-10.1); Potassium 4.7 mmol/L (3.5-5.1)
[2020-07-13 09:50] LABS: BUN/Creatinine Ratio 14.8; Bilirubin, Total 0.3 mg/dL (0.2-1.0); Total Protein 6.5 g/dL (6.4-8.2)
[2020-07-13] MEDS: NTG 0.1MG/HR TOPICAL PATCH TD SCH (10:25)
[2020-07-13] MEDS: ASPirin 81 mg TAB PO SCH (10:25)
[2020-07-13] MEDS: METOPROLOL TARTRATE 25 MG TAB PO SCH (10:26)
[2020-07-13] MEDS: amLODIPine BESYLATE 5 MG TAB PO SCH (10:27)
[2020-07-13] MEDS: CLOPIDOGREL BISULFATE 75 MG TAB PO SCH (10:27)
[2020-07-13] MEDS: cefTRIAXone 1GM/50ML D5W 50 ML IV SCH (10:27)
[2020-07-13] MEDS: PANTOPRAZOLE 40 MG/10 ML VIAL INJ IV SCH (10:27)
--- NOTE | 2020-07-13 10:55 | NUR ---
MD VISIT DR. Fan CHAPPELL HERE TO SEE AND EXAMINED PATIENT,EXPLAIN DISEASE PROCESS,PLAN OF CARE ,DISCHARGE PLAN AND MEDICATIONS TO PATIENT,RECEIVED ORDER.
[2020-07-13 12:00] VITALS: BP 150/71
[2020-07-13 15:41] VITALS: BP 137/66
[2020-07-13 16:56] VITALS: BP 137/60
--- NOTE | 2020-07-13 17:20 | NUR ---
Discharge instructions given as ordered. Encourage to follow up with PMD at [facility] as instructed. All questions and concerns addressed. Patient verbalized understanding. Medication reconciliation form completed and copy given to patient.IV removed with catheter intact, pressure dressing applied, Telemetry unit returned to ICU. Patient taken to vehicle via wheelchair with all personal belongings, accompanied by staff and family member. No distress noted at time of departure.
[2020-07-14 07:59] LABS: Hepatitis B Surface Antigen Negative (Negative)
[2020-07-14 08:10] LABS: Immunoglobulin G, Serum 512 mg/dL (603-1613)
== END 2020-07-13 17:20 | disposition home or self-care (01) | DRG 853 ==
LOC: EDBD 00:20 → ER 00:23 → TELE 00:24 → DOU IN ICU 08:14 → TELE-WESTW 07-09 15:45
PROVIDERS: ADMIT Nurse Practitioner; ATTEND Family Medicine
PROC: 027035Z Dilation of Coronary Artery, One Artery with Two Drug-eluting Intraluminal Devices, Percutaneous Approach (ICD-10-PCS; principal; 2020-07-07)
PROC: 30233N1 Transfusion of Nonautologous Red Blood Cells into Peripheral Vein, Percutaneous Approach (ICD-10-PCS; 2020-07-07)
PROC: 4A023N7 Measurement of Cardiac Sampling and Pressure, Left Heart, Percutaneous Approach (ICD-10-PCS; 2020-07-07)
PROC: B2111ZZ Fluoroscopy of Multiple Coronary Arteries using Low Osmolar Contrast (ICD-10-PCS; 2020-07-07)
PROC: B2151ZZ Fluoroscopy of Left Heart using Low Osmolar Contrast (ICD-10-PCS; 2020-07-07)
DX: A40.8 Other streptococcal sepsis (principal); I21.4 Non-ST elevation (NSTEMI) myocardial infarction; J18.9 Pneumonia, unspecified organism; N18.6 End stage renal disease; I50.23 Acute on chronic systolic (congestive) heart failure; I13.2 Hypertensive heart and chronic kidney disease with heart failure and with stage 5 chronic kidney disease, or end stage renal disease; D68.9 Coagulation defect, unspecified; J98.11 Atelectasis; N17.9 Acute kidney failure, unspecified; T82.855A Stenosis of coronary artery stent, initial encounter; D64.9 Anemia, unspecified; E11.22 Type 2 diabetes mellitus with diabetic chronic kidney disease; E78.00 Pure hypercholesterolemia, unspecified; E78.5 Hyperlipidemia, unspecified; I25.10 Atherosclerotic heart disease of native coronary artery without angina pectoris; K59.00 Constipation, unspecified; Y83.1 Surgical operation with implant of artificial internal device as the cause of abnormal reaction of the patient, or of later complication, without mention of misadventure at the time of the procedure; Z20.828 Contact with and (suspected) exposure to other viral communicable diseases; Z79.02 Long term (current) use of antithrombotics/antiplatelets; Z82.49 Family history of ischemic heart disease and other diseases of the circulatory system; Z85.01 Personal history of malignant neoplasm of esophagus; Z88.2 Allergy status to sulfonamides; Z88.6 Allergy status to analgesic agent; Z91.041 Radiographic dye allergy status
CPT/HCPCS: 36415; 36430; 71045; 76775; 80048; 80053; 81001; 82306; 82570; 82784; 82962; 83735; 83880; 83970; 84100; 84156; 84300; 84443; 84484; 85025; 85379; 85610; 85730; 86334; 86335; 86803; 86850; 86900; 86901; 86920; 87040; 87077; 87081; 87186; 87340; 87426; 92928; 93005; 93458; 93926; 93970; 96365; 96375; 97163; 99152; 99153; C1874; C1887; C9113; G0378; J0696; J1815; J1956; J2250; J2405; J3490; Q9967